=== PATIENT | male | born 1955 | race Hispanic/Latino ===

== ENCOUNTER 2017-04-12 00:05 | Day surgery (SDC) | payer MEDICARE, MEDICAID ==
[~2017-04-12 00:05] MED LIST: AMLO10TA3 PO; ASPI-973 PO; CALC667C9 PO; CLOP75TA28 PO; FURO40TA4 PO; LEVO88TA4 PO
[2017-04-12 08:45] VITALS: BP 135/70; PULSE 65; RESP 18; O2SAT 98
[2017-04-12 09:08] LABS: BASOPHILS % (AUTO) 0.6 % (0-3); EOSINOPHILS % (AUTO) 12.4 % (0-5); MONOCYTES % (AUTO) 8.9 % (4-12); Mean Corpuscular Hemoglobin 30.5 pg (27.0-35.0); Mean Corpuscular Volume 90.4 fL (81-100); NEUTROPHILS % (AUTO) 57.2 % (40-74); Platelet Count 349 bil/L (150-400)
[2017-04-12] MEDS ORDERED: HYDR-656 PO (09:18)
[2017-04-12] MEDS ORDERED: CHOL500050 PO (09:18)
[2017-04-12 09:24] LABS: INR 0.95 ratio
--- NOTE | 2017-04-12 09:44 | NUR ---
Fistulogram rescheduled for 04/22 Pt arrived to [facility] around 0840, accompanied by daughter. Japanese speaking only. 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 Pt unable to recall current medications. Reji called to receive list. Pt reports he last took all medications yesterday, including Plavix. Per radiologist request, pt rescheduled for 04/22. Thorough instructions regarding holding Plavix for 5 days given to patient and daughter. Addendum: 04/12/17 at 0953 by SUKHJINDER HARPER RN Daughter brought in bag of medications to confirm with pharmacy list. Plavix bottle tagged with instructions to stop taking 04/18-04/22. Daughter and pt verbalized understanding.
[2017-04-12] MEDS ORDERED: FEXO-106 PO (09:51)
== END 2017-04-12 23:59 | disposition home or self-care (01) ==
LOC: SOUO 00:05
PROVIDERS: ATTEND Student in an Organized Health Care Education/Training Program
DX: N18.6 End stage renal disease (principal); T82.858A Stenosis of other vascular prosthetic devices, implants and grafts, initial encounter; Z53.09 Procedure and treatment not carried out because of other contraindication

== ENCOUNTER 2017-04-22 00:23 | Day surgery (SDC) | payer MEDICARE, MEDICAID ==
[~2017-04-22] VITALS: Ht 162.6 cm; Wt 75.0 kg
[~2017-04-22 00:23] MED LIST changes: +CHOL500050 PO; +FEXO-106 PO; -FURO40TA4 PO; +HYDR-656 PO; -LEVO88TA4 PO
[2017-04-22 09:24] LABS: BASOPHILS % (AUTO) 0.3 % (0-3); EOSINOPHILS % (AUTO) 9.1 % (0-5); Mean Corpuscular Volume 93.8 fL (81-100); NEUTROPHILS % (AUTO) 73.4 % (40-74); Platelet Count 385 bil/L (150-400)
[2017-04-22 09:31] VITALS: BP 128/51; PULSE 62; RESP 18; O2SAT 98
[2017-04-22 09:35] LABS: INR 0.94 ratio
--- NOTE | 2017-04-22 10:29 | DRSVH ---
PROCEDURE: X-RAY CHEST ONE VIEW, PORTABLE ([id number]) INDICATIONS: SHORTNESS OF BREATH TECHNIQUE: One view of the chest was acquired. COMPARISON: [facility], CR, XR CHEST 2VW, 05/04/2016, 8:04. FINDINGS: Surgical changes and devices: None. Lungs and pleura: Mild patchy appearance opacity is present within the retrocardiac region. Coarsened bibasilar interstitial opacities are present. Mediastinum: Mediastinal contours appear normal. Heart size is normal. Bones and chest wall: No suspicious bony lesions. Overlying soft tissues appear unremarkable. IMPRESSION: Retrocardiac and bibasilar interstitial opacities as above. Findings are suspicious for d eveloping pneumonia. Other etiologies can include focal edema. Dictated by: Ling Plata M.D. on 04/22/2017 at 10:27 Approved by: Ling Plata M.D. on 04/22/2017 at 10:27
[2017-04-22] MEDS ORDERED: LEVO750T9 PO (12:29)
== END 2017-04-22 23:59 | disposition home or self-care (01) ==
LOC: SOUO 00:23
PROVIDERS: ATTEND Student in an Organized Health Care Education/Training Program
DX: T82.858A Stenosis of other vascular prosthetic devices, implants and grafts, initial encounter (principal); N18.6 End stage renal disease; Z53.09 Procedure and treatment not carried out because of other contraindication; R91.8 Other nonspecific abnormal finding of lung field; R06.02 Shortness of breath

== ENCOUNTER 2017-04-22 11:29 | Emergency (ER) | payer MEDICARE, MEDICAID ==
[~2017-04-22] VITALS: Ht 162.6 cm; Wt 75.0 kg
[2017-04-22 11:32] VITALS: BP 156/61; PULSE 66; RESP 20; O2SAT 100
--- NOTE | 2017-04-22 11:42 | ED.REPORT ---
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 C/o associated subjective fever and green-productive cough for the past week. He denies vomiting and chest pain. Nursing Notes Stated Complaint: POS PNEUMONIA Chief Complaint: Respiratory Complaints Nursing Notes Reviewed: Yes Allergies: Coded Allergies: lisinopril (Verified Adverse Reaction, Unknown, 01/06/16) COUGH Scheduled Amlodipine (Amlodipine) 10 Mg Tablet 10 MG PO AM Aspirin (Aspirin) 81 Mg Tablet 81 MG PO DAILY Calcium Acetate (Calcium Acetate) 667 Mg Capsule 4 CAPSULE PO TIDWM Cholecalciferol (Vitamin D3) (Vitamin D) 50,000 Unit Capsule 50,000 UNIT PO WEEKLY Clopidogrel (Clopidogrel) 75 Mg Tablet 75 MG PO DAILY Fexofenadine (Fexofenadine) 180 Mg Tablet 180 MG PO DAILY Levofloxacin (Levaquin) 750 Mg Tablet 500 MG PO q48hrs Take first dose 04/24 and second dose 04/26. Carol primera tableta 04/24 y la sequnda tableta 04/26. 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 Congestive heart failure, echocardiogram done January 16, 2014, showed an EF of 40%-45%, unrevealing valves. Apparently his previous echo had been normal. 2. Type 2 diabetes, apparently diet-controlled. 3. Stroke with history of right frontal encephalomalacia and an old right parietal infarct. 4. Chronic renal insufficiency stage 3. His creatinine on January 17, 2014 was 1.7. 5. Hyperlipidemia. 6. Hypothyroidism. 7. Large right pleural effusion tapped September 23, 2014. Past Surgical History Fistula Family History Noncontributory Smoking History Former Smoker Social History Alcohol Use: Denies alcohol use Drug Use: Denies drug use Other Social History: Ambulatory Status Independent Review of Systems Constitutional: Reports: Fever (subejctive), Denies: Chills Respiratory: Reports: Prod cough, green, Shortness of breath Cardiovascular: Denies: Chest pain Complete sys rev & neg: except as marked. GI: Denies: Vomiting Physical Exam Initial Vital Signs Vital Signs (First) Date Time Temp Pulse Resp B/P Pulse Ox O2 Delivery O2 Flow Rate FiO2 04/22/17 11:32 36.5 66 20 156/61 100 Room Air Initial VS: Reviewed Head / Eyes: Atraumatic, Normocephalic, PERRL ENT: Mucous membranes moist, Conjunctiva normal Abdomen / GI: Soft, Non-tender, No guarding, No rebound, No distention Back: No CVA tenderness Extremities: Vascular intact, Neuro intact, No swelling, No tenderness Skin: Warm, Dry General/Constitutional: Awake, Alert, Cooperative Neck: Atraumatic, Supple, No meningismus Respiratory / Chest: No wheezing, No retractions faint crackles right lower lobe Cardiovascular: Heart rate NL, Regular rhythm, Heart sounds NL Interpretation & Diagnostics X-Ray Chest Interpretation Chest Xray Interpretation: IMPRESSION: Retrocardiac and bibasilar interstittial opacities as above. Findings are suspicious for developing pnemumonia. Other etiologies can include focal edema. View: Portable Interpretation / Wet Read by: Interpret - Radiologist Re-Eval/Medical Decision Med Decision/Clinical Course 61-year-old male on dialysis and end-stage renal disease sent over by radiology for possible developing bibasilar pneumonia. Patient does report cough productive of green sputum 1 week. His oxygen is normal 100% and his vital signs are stable. He is in no respiratory distress. I discussed with patient and he prefers to be treated at home. Will prescribe Levaquin. First dose given in ER. He will then receive every 48 hour dosing for 5 days total of antibiotics. He is advised to follow up with primary doctor tomorrow for recheck. Return precautions given of any nursing shortness breath or other new or worsening symptoms. Counseled Regarding: Diagnosis, Lab results, Need for follow-up, When/why to return to ED Discharge & Departure Impression: Primary Impression: Pneumonia Pneumonia type: due to unspecified organism Laterality: unspecified laterality Lung location: unspecified part of lung Qualified Code: J18.9 - Pneumonia, unspecified organism Disposition: Home Discharge Condition All VS Reviewed: Yes Condition: Stable Additional Instructions: Thank you for entrusting us with your care today. You have pneumonia. I am prescribing you Levaquin. You were give n the first dose here. Take the next dose on Saturday and following dose on Saturday. Follow up with your primary care physician tomorrow Return to the Emergency Department for any new or worsening symptoms including chest pain, vomiting, difficulty breathing, dizziness, or high fever. I hope you feel better soon, enjoy the sunshine! Referrals: Halina Munguia (PCP) Scribe Attestation Portion of this note were transcribed by Juanita Daniels. I, Dr. Floyd, personally performed the history, physical exam, and medical decision-making: I reviewed and confirmed the accuracy for the information in the transcribed note. Signed by: stella Iniguez, 04/22/17 1400 copies to: Halina Munguia Ben M MD April 22, 2017 11:42 Juli Howell April 22, 2017 12:09 Juanita Daniels April 22, 2017 12:24
[2017-04-22] MEDS ORDERED: LEVO750T9 PO (12:29)
[2017-04-22] MEDS ORDERED: levoFLOXacin 750 mg Tablet PO ONE (12:30)
[2017-04-22 13:04] VITALS: BP 152/55; PULSE 64; RESP 14; O2SAT 97
== END 2017-04-22 13:04 | disposition home or self-care (01) ==
LOC: SED 11:29
DX: J18.9 Pneumonia, unspecified organism (principal); E11.22 Type 2 diabetes mellitus with diabetic chronic kidney disease; N18.3 Chronic kidney disease, stage 3 (moderate); I50.9 Heart failure, unspecified; E78.5 Hyperlipidemia, unspecified; E03.9 Hypothyroidism, unspecified; Z86.73 Personal history of transient ischemic attack (TIA), and cerebral infarction without residual deficits; Z99.2 Dependence on renal dialysis; Z87.891 Personal history of nicotine dependence; Z79.82 Long term (current) use of aspirin; Z88.8 Allergy status to other drugs, medicaments and biological substances

== ENCOUNTER 2017-05-08 00:39 | Day surgery (SDC) | payer MEDICARE, MEDICAID ==
--- NOTE | 2017-05-01 08:27 | NUR ---
Patient did not show up for his appt. I called him at home and he states that he was not aware of today's appt. I called Dr Ren's office to inform them and to have them reschedule and that it is recommended that warfarin be stopped 5 days prior to a fistulagram and/or that other anticoagulants be addressed. Dialysis center called and informed that patient is a no show for today.
[2017-05-08] VITALS (8 sets, daily range): BP systolic 116–130; BP diastolic 52–65; PULSE 58–66; RESP 11–15; O2SAT 95–98
[~2017-05-08] VITALS: Ht 162.6 cm; Wt 66.0 kg
[~2017-05-08 00:39] MED LIST changes: +Heparin 1,000 Unit/mL 10 mL Inj ONE; +Heparin 10,000 Unit/1,000 mL NS Premix IV ONE; +LEVO750T9 PO
[2017-05-08 09:45] LABS: BASOPHILS % (AUTO) 0.6 % (0-3); EOSINOPHILS % (AUTO) 12.9 % (0-5); MONOCYTES % (AUTO) 6.9 % (4-12); Mean Corpuscular Volume 94.8 fL (81-100); NEUTROPHILS % (AUTO) 56.5 % (40-74); Platelet Count 370 bil/L (150-400)
[2017-05-08 10:04] LABS: INR 0.97 ratio
[2017-05-08] MEDS ORDERED: 0.9% Sodium Chloride 250 ML ONE (10:16)
--- NOTE | 2017-05-08 10:31 | NUR ---
Admitted today for fistulogram for a documented history at dialysis of excessive bleeding post dialysis. Patient is not well versed on his medications, and does not know them by name. He is here by himself today with his daughter coming later today to pick him up. Labs drawn and all clotting times are within normal limits. Pt does know he has been off of Plavix since 05/03/17. Telephone call to [facility] to confirm he is no longer taking Coumadin, Lasix, and Synthroid.
[2017-05-08] MEDS ORDERED: Heparin 1,000 Unit/mL 10 mL Inj ONE (11:35)
[2017-05-08] MEDS ORDERED: fentaNYL-PF 50 mCg/mL 2 mL Inj ONE (11:36)
[2017-05-08] MEDS ORDERED: Heparin 10,000 Unit/1,000 mL NS Premix IV ONE (11:39)
--- NOTE | 2017-05-08 12:39 | NUR ---
Received Received from veterinary laboratory technician about 1225. VSS. Tele SR. Denies pain. Purstring intact without bleeding or hematoma. Radial pulse weakly palp, SPO2 with good pleth. +Bruit and weak thrill. Elevated on pillow and precautions reviewed through american sign language interpreter. Taking po fluids well and lunch ordered. Continue to monitor per orders.
--- NOTE | 2017-05-08 13:17 | DRSVH ---
PROCEDURE: 1. Right upper extremity arteriovenous fistulogram. 2. Angioplasty upper pole aspect of venous limb. 3. Conscious sedation x40 minutes. INDICATIONS: Malfunctioning arteriovenous fistula. COMPARISON: [facility], XA, ARTERIO VENOUS FISTULOGRAM (PNL), 02/10/2016, 11:40. None. TECHNIQUE: Informed, written consent from the patient was obtained prior to the procedure. Patient wa s brought to the angiography suite, and conscious sedation was administered intravenously by care home staff, while continuous cardiorespiratory monitoring was performed. Maximal sterile barrier t echnique, hand hygiene, skin preparation, and sterile ultrasound technique (if ultrasound was utilize d) was followed. A mask, sterile gown, sterile gloves, a large sterile sheet, hand hygiene, and 2% ch lorhexidine or iodine was utilized for skin antisepsis. The right upper extremity was prepped and khang ped sterilely, and the skin and subcutaneous tissues overlying the peripheral aspect of the venous li mb were infused with lidocaine. The nephrostomy tube the venous limb was accessed antegrade with a mi cropuncture set. Contrast was injected per arteriovenous fistulogram. Intravenous heparin was adminis tered. A 035 Glidewire was advanced into the inferior vena cava with either the 4 Bengali nontapered a ngled catheter, through which the Glidewire was exchanged for an exchange length 035 J-wire. A 40 mm long high pressure angioplasty balloon was expanded to 7 mm diameter, within the peripheral aspect of the venous limb. Repeat arteriovenous fistulogram was performed. The venotomy was closed with purses tring closure. FLUOROSCOPY TIME: 2 minutes FINDINGS: Recurrent high-grade stenosis within the peripheral aspect of the venous limb is present. The arteriovenous anastomosis is patent. Central draining venous structures are patent. Following hig h-pressure angioplasty, there is only mild residual stenosis. IMPRESSION: Recurrent high-grade stenosis within the peripheral aspect of the venous limb, successfu lly treated using 7 mm high-pressure angioplasty. Dictated by: Celia Brandt M.D. on 05/08/2017 at 13:13 Approved by: Celia Brandt M.D. on 05/08/2017 at 13:16
--- NOTE | 2017-05-08 13:49 | NUR ---
Pursestring removed without any difficulty, minimal ooze, bandaid applied over site. Discharge instructions reviewed with patient. I called his daughter,message left on voice mail that her Dad is ready for discharge at 14:30. Instructed patient to not be vigorous in movements with right hand in the next hour.
--- NOTE | 2017-05-08 14:26 | NUR ---
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 Discontinued IV intact. Discharged ambulatory with all belongings in no distress.
== END 2017-05-08 23:59 | disposition home or self-care (01) ==
LOC: SPI 00:39
PROVIDERS: ATTEND Radiology Diagnostic Radiology
DX: T82.858A Stenosis of other vascular prosthetic devices, implants and grafts, initial encounter (principal); Y83.2 Surgical operation with anastomosis, bypass or graft as the cause of abnormal reaction of the patient, or of later complication, without mention of misadventure at the time of the procedure; N18.6 End stage renal disease; Z99.2 Dependence on renal dialysis; I12.0 Hypertensive chronic kidney disease with stage 5 chronic kidney disease or end stage renal disease; D64.9 Anemia, unspecified; Z86.718 Personal history of other venous thrombosis and embolism; Z79.01 Long term (current) use of anticoagulants; N25.0 Renal osteodystrophy; I25.10 Atherosclerotic heart disease of native coronary artery without angina pectoris; E11.22 Type 2 diabetes mellitus with diabetic chronic kidney disease; D63.1 Anemia in chronic kidney disease; Z79.82 Long term (current) use of aspirin; Z79.02 Long term (current) use of antithrombotics/antiplatelets
CPT/HCPCS: 36415; 36902; 80048; 85025; 85610; 85730; 99152; C1725; C1769; J1644; J2250; J3010; J7050; Q9967

== ENCOUNTER 2017-07-02 23:42 | Emergency (ER) | payer MEDICARE, MEDICAID ==
[~2017-07-02] VITALS: Ht 170.2 cm; Wt 75.0 kg
[~2017-07-02 23:42] MED LIST changes: -Heparin 1,000 Unit/mL 10 mL Inj ONE; -Heparin 10,000 Unit/1,000 mL NS Premix IV ONE
[2017-07-02 23:44] VITALS: BP 105/59; PULSE 87; RESP 20; O2SAT 96
--- NOTE | 2017-07-02 23:59 | ED.REPORT ---
HPI-General Illness Date of Service Jul 02, 2017 ED Provider: Josue Pérez MD Pt is a 61 year old male with a history of type II DM, CHF, renal insufficiency , and hyperlipidemia who presents to the ED complaining of sharp, worsening, non -radiating abdominal pain onset 20:00 today. He c/o associated diarrhea and emesis. He denies chest pain, shortness of breath, and hematochezia. Pt rates the pain as a 7/10, and reports that it waxes and wanes and it is exacerbated with coughing. His most recent dialysis was today. Nursing Notes Stated Complaint: ABDOMEN DISCOMFORT Chief Complaint: Male Abdominal Pain Nursing Notes Reviewed: Yes Allergies: Coded Allergies: lisinopril (Verified Adverse Reaction, Unknown, 07/02/17) COUGH Scheduled Amlodipine (Amlodipine) 10 Mg Tablet 10 MG PO AM Aspirin (Aspirin) 81 Mg Tablet 81 MG PO DAILY Calcium Acetate (Calcium Acetate) 667 Mg Capsule 4 CAPSULE PO TIDWM Cholecalciferol (Vitamin D3) (Vitamin D) 50,000 Unit Capsule 50,000 UNIT PO WEEKLY Clopidogrel (Clopidogrel) 75 Mg Tablet 75 MG PO DAILY Fexofenadine (Fexofenadine) 180 Mg Tablet 180 MG PO DAILY Levofloxacin (Levaquin) 750 Mg Tablet 500 MG PO q48hrs Take first dose 04/24 and second dose 04/26. Carol primera tableta 04/24 y la sequnda tableta 04/26. 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 Ren Past Medical History Hypothyroidism. Large right pleural effusion - tapped September 23, 2014 Reports: Congestive heart failure, Diabetes mellitus (Type II, apparently diet- controlled), Hyperlipidemia, Stroke (history of right frontal encephalomalacia and an old right) Reports: Renal insufficiency (Stage III) Past Surgical History Fistula Family History Noncontributory Smoking History Former Smoker Social History Alcohol Use: Denies alcohol use Drug Use: Denies drug use Other Social History: Ambulatory Status Independent Review of Systems Full Review of Systems Respiratory: Denies: Shortness of breath Cardiovascular: Denies: Chest pain GI: Reports: Abdominal pain, Diarrhea, Vomiting, Denies: Hematochezia Complete sys rev & neg: except as marked. Physical Exam Nursing note and vitals reviewed. Constitutional: Well-developed, well-nourished. Not diaphoretic. Head: Normocephalic and atraumatic. Mouth/Throat: Oropharynx is clear and moist. No oropharyngeal exudate. Eyes: EOM are normal. Pupils are equal, round, and reactive to light. Neck: Supple, no tracheal deviation. Cardiovascular: Normal rate, regular rhythm. Equal and intact distal pulses throughout. Pulmonary/Chest: Effort normal and breath sounds normal. No respiratory distress. Abdominal: Soft. No distension. No focal tenderness to palpation. Bowel sounds present. Musculoskeletal: Range of motion grossly intact, moving all extremities. No edema or tenderness appreciated. Neurological: AOx3. Grossly nonfocal exam. Strength and sensation intact and equal to bilateral upper and lower extremities. Skin: Warm and dry, no rashes or pallor appreciated. Psychiatric: Appropriate mood and affect. Behavior appears normal. Vital Signs Vital Signs Date Time Temp Pulse Resp B/P Pulse Ox O2 Delivery O2 Flow Rate FiO2 07/03/17 01:26 67 18 114/57 99 Room Air 07/02/17 23:44 37.5 87 20 105/59 96 Room Air Initial VS: Reviewed Interpretation & Diagnostics Lab Results Interpretation Result Diagram: 07/03/17 0045 07/03/17 0045 Test 07/03/17 00:45 White Blood Count 13.8th/mm3 (3.8-10.1) Red Blood Count 4.81mil/mm3 (4.40-5.80) Hemoglobin 14.7g/dL (13.8-17.2) Hematocrit 43.5% (41.0-50.0) Mean Corpuscular Volume 90.4fL (81-100) Mean Corpuscular Hemoglobin 30.6pg (27.0-35.0) Mean Corpuscular Hemoglobin Concent 33.8% (32.0-37.0) Red Cell Distribution Width 13.8% (12.3-15.4) Platelet Count 256bil/L (150-400) Neutrophils (%) (Auto) 95.2% (40-74) Lymphocytes (%) (Auto) 1.6% (14-46) Monocytes (%) (Auto) 1.7% (4-12) Eosinophils (%) (Auto) 1.0% (0-5) Basophils (%) (Auto) 0.1% (0-3) Prothrombin Time 10.4sec (8.1-12.5) Prothromb Time International Ratio 0.97ratio Sodium Level 138mEq/L (134-144) Potassium Level 4.2mEq/L (3.5-5.2) Chloride Level 94mEq/L (97-108) Carbon Dioxide Level 26mmol/L (18-29) Blood Urea Nitrogen 34mg/dL (8-27) Creatinine 4.52mg/dL (0.76-1.27) Estimat Glomerular Filtration Rate 14mL/min (>59) Glucose Level 150mg/dL (60-99) Lactic Acid Level 3.2mmol/L (0.4-2.0) Calcium Level 9.7mg/dL (8.5-10.1) Magnesium Level 1.5mg/dL (1.6-2.6) Total Bilirubin 0.4mg/dL (0.0-1.2) Aspartate Amino Transf (AST/SGOT) 12U/L (0-50) Alanine Aminotransferase (ALT/SGPT) 9U/L (0-44) Alkaline Phosphatase 142U/L (25-160) Total Protein 8.7g/dL (6.4-8.4) Albumin 4.5g/dL (3.4-5.0) Lipase 91U/L (13-60) Lab Results Interpretation: WBC 13.8 with 95% neutrophils Nion -18 lactic acid - 3.2 creatine 4.52 stable from pr magnesium - 4.5 ECG Interpretation ECG Interpretation: Sinus rhythm with a rate of 82. LVH with secondary repolarization abnormality. Slightly increased ST depression in 1 AVL. Otherwise no significant change from previous. Time: 00:37 Interpreted by: ED physician CT Abd / Pelvis Interpretation CONCLUSION: 1. Normal appendix. No free air, bowel obstruction, or mesenteric inflammation. Liquid density stool with air fluid levels in the colon suggests malabsorption/diarrhea. Findings may relate to gastroenteritis although no gross bowel wall thickening is appreciated. Correlate with patient's symptoms. 2. Negative for obstructive uropathy. 3. Mild prostate enlargement. Transmitted to the ED at 01:30 by Delano Kan M.D. Study type: Abdominal CT no contrast Interpretation / Wet Read by: Interpret - Radiologist Re-Eval/Medical Decision Med Decision/Clinical Course In summary, 61-year-old male with diabetes, renal insufficiency on dialysis presenting to the ED for evaluation of nausea, vomiting, and diarrhea associated with abdominal pain since earlier this evening. Differential is broad and includes small bowel obstruction, appendicitis, gastroenteritis, pancreatitis, cholecystitis, etc. Of note, patient is having no chest pain or dyspnea whatsoever; EKG demonstrates sinus rhythm with a rate of 82, LVH with secondary repolarization abnormality, no significant change from previous. Laboratory studies notable for a white blood cell count of 13.8, anion gap of 18 , lactic acid of 3.2, creatinine of 4.52, Mg 1.5 (repleted). Rest of CBC and CMP grossly wnl and/or stable from previous. Lipase of 91. CT scan demonstrates no acute findings that would fully account for the patient's symptoms with the exception of some liquid density stool in the colon that may be consistent with gastroenteritis. This is consistent with his clinical picture. He does have a lactic acid of 3.2, however in the setting of renal insufficiency and a reassuring examination, I do not think this represents ischemia or another acute process that would require emergent intervention at this time. I discussed the above findings with the patient and his family; they would like to be discharged home and this seems reasonable given that upon reassessment, the patient is tolerating by mouth without difficulty, has been hemodynamically stable, and states that he feels better. However, given the abnormalities above, I would like him to follow up tomorrow for reassessment and very careful return precautions were discussed at length. Patient and family agreeable to plan as stated, no further questions. Source of Hx: Old records Time of Eval: 02:50 Re-Evaluation/Progress Note: Pt rechecked. Informed pt of results. All questions addressed. Time of Eval: 02:58 Re-Evaluation/Progress Note: Pt rechecked. Informed pt of plan for discharge. Pt understands and agrees with plan for discharge. F/U instructions and RTER warnings given. All questions addressed. Consultation : Referral / Consult Name: Mike Minaya MD Consulted With: Hospitalist Call Returned at: 02:50 Cafe Manager: Agrees with ursula, Agrees with plan Note: Discussed pt's case. Recommends having pt follow up with his PCP tomorrow given reassuring exam, clinical improvement, and lab findings are in the setting of renal insufficiency. Counseled Regarding: Diagnosis, Lab results, Need for follow-up, When/why to return to ED Discharge & Departure Primary Impression: Nausea vomiting and diarrhea Disposition: Home Discharge Condition All VS Reviewed: Yes Condition: Improved Patient Instructions: Acute Abdominal Pain (ED), Acute Diarrhea (ED), Acute Nausea and Vomiting (ED) Additional Instructions: Thank you for allowing us to be a part of your care this evening. Your CT scan was reassuring. I'm not entirely sure what's causing your symptoms at this time , though I'm glad you're feeling better after the medicine. Please be sure to follow up with your regular doctor tomorrow to be reassessed as you did have some laboratory results that were abnormal, as discussed. These need to be followed up on. Return to the ED immediately if you develop fever, return of vomiting, worsening abdominal pain, chills, begin acting differently, or if there's anything else of concern to you. Vandana por permitirnos ser parte de lim atencin esta noche. La exploracin del CT fue tranquilizadora. No estoy completamente seguro lo que est causando los s ntomas en yonathan momento, aunque me alegro de que te sientes mejor despus de la medicina. Por favor asegrese de seguimiento con lim mdico regular maana a ser reevaluado abel usted tuvo unos resultados de laboratorio que naomi anormales, abel comentamos. Estos deben tener seguimiento. Volver al ED inmediatamente si usted desarrolla fiebre, retorno de vmitos, empeoramiento de dolor abdominal, escalofros, comenzar a actuar diferentemente, o si hay algo ms de preocupaci n para usted. Referrals: Parvez Snow MD (PCP) Scribe Attestation Portions of this note were transcribed by Sonia Reyes. I, Dr. Pérez personally performed the history, physical exam and medical decision-making; I reviewed and confirmed the accuracy of the information in the transcribed note. Signed by: Laurel Simons, 07/03/17. copies to: Parvez Snow MD, William B MD Jul 02, 2017 23:59 Sonia Landry Jul 03, 2017 00:16
[2017-07-03] MEDS ORDERED: HYDROmorphone 0.5 mg/0.5 mL iSecure Syringe IVPUSH PRN (00:20)
[2017-07-03] MEDS ORDERED: Ondansetron 2 mg/mL 2 mL Inj IVPUSH PRN (00:20)
[2017-07-03 00:49] LABS: BASOPHILS % (AUTO) 0.1 % (0-3); MONOCYTES % (AUTO) 1.7 % (4-12); Mean Corpuscular Hemoglobin 30.6 pg (27.0-35.0); Mean Corpuscular Volume 90.4 fL (81-100); NEUTROPHILS % (AUTO) 95.2 % (40-74); Platelet Count 256 bil/L (150-400)
[2017-07-03 01:26] VITALS: BP 114/57; PULSE 67; RESP 18; O2SAT 99
[2017-07-03 01:30] LABS: INR 0.97 ratio
[2017-07-03 01:35] LABS: Magnesium 1.5 mg/dL (1.6-2.6)
[2017-07-03] MEDS ORDERED: 0.9% Sodium Chloride 1,000 ML IV ONE (03:00)
[2017-07-03] MEDS ORDERED: Magnesium Sulf 2 Gm/50mL Water 2 GM in IV Premix 1 EACH IV ONE (03:20)
[2017-07-03] MEDS ORDERED: Ondansetron 2 mg/mL 2 mL Inj IVPUSH ONE (03:30)
[2017-07-03 03:47] VITALS: BP 123/74; PULSE 73; RESP 16; O2SAT 94
[2017-07-03 03:50] VITALS: BP 122/67; PULSE 73; RESP 18; O2SAT 99
--- NOTE | 2017-07-03 08:18 | DRSVH ---
PROCEDURE: CT KUB ([id number]) INDICATIONS: n/v, abd pain - dialysis patient TECHNIQUE: Noncontrast 5 mm thick sections acquired from the diaphragms to the symphysis. 5 mm thick coronal an d sagittal reformats were then performed. For radiation dose reduction, the following was used: aut omated exposure control, adjustment of mA and/or kV according to patient size. COMPARISON: None. FINDINGS: Preliminary report by payroll officer radiology Image quality: Excellent. Lung bases: Lung bases are clear. Heart size is normal. Urinary system: Both kidneys are normal in size. No kidney stones. Renal calcifications appear to b e vascular. No hydronephrosis or perinephric fat stranding. Both ureters appear non-dilated through out their expected courses. Bladder is decompressed; no calcified bladder stones. Other solid organs: Liver and spleen are normal in size. Gallbladder is clear. Pancreas is normal in contours. No adrenal nodules. Peritoneum and bowel: Unenhanced bowel loops demonstrate normal wall thickness and caliber. Normal a ppendix. Colon is mostly nondistended with scattered air-fluid levels, no specific wall thickening or diverticular disease. No free fluid or air. Nodes and vessels: No retroperitoneal or mesenteric adenopathy by size criteria. Aorta and inferior vena cava are normal in caliber. Abdominal wall: No ventral hernias. Pelvis: No free pelvic fluid. Fat filled left inguinal hernias, no adenopathy. Prostate is enlarged measuring 3.9 x 6.1 cm with prominent median lobe. Bones: No suspicious bony lesions. No vertebral body compression fractures. IMPRESSION: 1. No obstructive uropathy or nephrolithiasis. Urinary bladder is nondistended. 2. Prostatic enlargement. 3. No evidence of bowel obstruction or appendicitis. Nonspecific gastroenteritis/colitis cannot be ex cluded. Findings are concordant with the preliminary report. Dictated by: Adeel Antoine M.D. on 07/03/2017 at 8:09 Approved by: Adeel Antoine M.D. on 07/03/2017 at 8:15
== END 2017-07-03 03:56 | disposition home or self-care (01) ==
LOC: SED 23:42
DX: R11.2 Nausea with vomiting, unspecified (principal); R19.7 Diarrhea, unspecified; E11.9 Type 2 diabetes mellitus without complications; I50.9 Heart failure, unspecified; E78.5 Hyperlipidemia, unspecified; E03.9 Hypothyroidism, unspecified; N18.9 Chronic kidney disease, unspecified; Z79.82 Long term (current) use of aspirin; Z86.73 Personal history of transient ischemic attack (TIA), and cerebral infarction without residual deficits; Z87.891 Personal history of nicotine dependence; Z99.2 Dependence on renal dialysis
CPT/HCPCS: 36415; 74176; 80053; 83605; 83690; 83735; 85025; 85610; 93005; 96361; 96374; 96375; 99285; J1170; J2405; J7030